=== PATIENT | female | born 1965 | race Caucasian/White ===

== ENCOUNTER 2018-08-08 13:10 | Emergency (ER) | payer OTHER ==
[2018-08-08 13:24] VITALS: BP 119/71; PULSE 83; TEMP 98.2; BMI 30.9
--- NOTE | 2018-08-08 15:15 | PDOC ---
History of Present Illness - General Chief Complaint: Cold Symptoms Stated Complaint: HEADACHE Time Seen by Provider: 08/08/18 14:02 History Source: Patient Exam Limitations: No Limitations Past History - Past Medical History Allergies/Adverse Reactions: Allergies Allergy/AdvReac Type Severity Reaction Status Date / Time aspirin Allergy Verified 08/08/18 13:20 Home Medications: Ambulatory Orders NK [No Known Home Medication] 08/08/18 COPD: No - Immunization History Immunization Up to Date: Yes - Suicide/Smoking/Psychosocial Hx Smoking History: Never smoked Hx Alcohol Use: No Drug/Substance Use Hx: No *Physical Exam - Vital Signs Last Vital Signs Temp Pulse Resp BP Pulse Ox 98.2 F 83 15 119/71 97 08/08/18 13:21 08/08/18 13:21 08/08/18 13:21 08/08/18 13:21 08/08/18 13:21 - Physical Exam General Appearance: No: Apparent Distress HEENT: positive: Normal ENT Inspection, TMs Normal, Pharynx Normal Respiratory/Chest: positive: Lungs Clear, Normal Breath Sounds. negative: Respiratory Distress Cardiovascular: positive: Regular Rhythm, Regular Rate, S1, S2. negative: Murmur Gastrointestinal/Abdominal: positive: Normal Bowel Sounds, Soft. negative: Tender, Distended, Guarding, Rebound Musculoskeletal: positive: Normal Inspection Integumentary: positive: Normal Color Neurologic: positive: Alert, Normal Mood/Affect Moderate Sedation - Procedure Monitoring Vital Signs: Procedure Monitoring Vital Signs Temperature 98.2 F 08/08/18 13:21 Pulse Rate 83 08/08/18 13:21 Respiratory Rate 15 08/08/18 13:21 Blood Pressure 119/71 08/08/18 13:21 O2 Sat by Pulse Oximetry (%) 97 08/08/18 13:21 ED Treatment Course - RADIOLOGY Radiology Studies Ordered: Category Date Time Status CHEST PA & LAT [RAD] Stat Radiology 08/08/18 14:24 Taken Medical Decision Making - Medical Decision Making 53 y/o F hx of asthma presents with headache, sore throat, body aches and dry cough x 2 weeks. Denies recent travel, fever, sob, chest pain, abd pain, n/v. Has not seen her PCP regarding her symptoms. States came in as her family member was being examined and decided to get checked out as well. PE unremarkable CXR done given length of symptoms and unremarkable ?URI Advised further f/u with PCP 08/08/18 15:15 *DC/Admit/Observation/Transfer Diagnosis at time of Disposition: Viral syndrome - Discharge Dispostion Disposition: HOME Condition at time of disposition: Stable Decision to Admit order: No - Referrals - Patient Instructions Printed Discharge Instructions: DI for Viral Upper Respiratory Infection -- Adult Additional Instructions: Thank you for choosing [facility]. It was a pleasure taking care of you. Your chest xray was negative Your symptoms could be viral in origin Follow-up with your doctor for further evaluation Return to the Emergency Department if your symptoms worsen or persist or have other concerning symptoms. - Post Discharge Activity
== END 2018-08-08 15:20 | disposition home or self-care (01) ==
LOC: JERFT 13:10
DX: J06.9 Acute upper respiratory infection, unspecified (principal); B97.89 Other viral agents as the cause of diseases classified elsewhere; Z87.09 Personal history of other diseases of the respiratory system
CPT/HCPCS: 71046-TC-FY; 99281-25

== ENCOUNTER 2018-10-24 09:31 | Emergency (ER) | payer OTHER ==
[2018-10-24 09:41] VITALS: BMI 32.1
--- NOTE | 2018-10-24 10:35 | PDOC ---
History of Present Illness - General Chief Complaint: Vomiting/Diarrhea Stated Complaint: VOMITING W/ DIARRHEA History Source: Patient Exam Limitations: No Limitations - History of Present Illness Initial Comments: 10/24/18 10:33 53 yo F ho DM on metformin, athma, here wit n/v/d since 2 days. has had mutliple episodes of vomiting. loose water stools. denies fever, positive chills. all stool nonbloody . no urinary complaints. also c/o headache. daughter with similar sxs, n/v/d. no travel. no recent abx. also c/o recent worsening wheezing and sob. Past History - Past Medical History Allergies/Adverse Reactions: Allergies Allergy/AdvReac Type Severity Reaction Status Date / Time aspirin Allergy Verified 10/24/18 09:37 Home Medications: Ambulatory Orders Ondansetron [Zofran *Odt*] 8 mg SL TID PRN #10 od.tablet MDD 3 10/24/18 Anemia: Yes COPD: No Diabetes: Yes GI Disorders: Yes Hypercholesterolemia: Yes - Surgical History Appendectomy: Yes - Immunization History Immunization Up to Date: Yes - Suicide/Smoking/Psychosocial Hx Smoking History: Never smoked Hx Alcohol Use: No Drug/Substance Use Hx: No *Physical Exam - Vital Signs Last Vital Signs Temp Pulse Resp BP Pulse Ox 97.9 F 83 18 115/76 97 10/24/18 09:37 10/24/18 09:37 10/24/18 09:37 10/24/18 09:37 10/24/18 09:37 - Physical Exam Comments: 10/24/18 11:58 awake alert dry mucous membranes, heart reg tachycardia. lungs clear bilaterally abd soft nt nd. periumbilical ttp. no rebound no guarding. ext wwp no edema. no calf tendernss ED Treatment Course - LABORATORY CBC & Chemistry Diagram: 10/24/18 11:44 10/24/18 11:44 Medical Decision Making - Medical Decision Making 10/24/18 11:58 53 yo F h/o htn asthma here with n/ v/d and lightheaded. differential infectious viral ge, diverticulitis, dehydration electrolyte abnormality pancreatitis. plan lasbs lipase ivf zofran pepcid. will consider ct if no improvement with fluids and zofran. 10/24/18 15:[address] unremarkable. c/o mild epigastric pain. sick contact. will dc home. fu gi prn, 10/24/18 18:10 feeling better, will dc home fu with GI and pcp. *DC/Admit/Observation/Transfer Diagnosis at time of Disposition: Gastroenteritis - Discharge Dispostion Disposition: HOME Condition at time of disposition: Improved Decision to Admit order: No - Prescriptions Prescriptions: Ondansetron [Zofran *Odt*] 8 mg SL TID PRN #10 od.tablet MDD 3 PRN Reason: Nausea - Referrals Referrals: Molina Aivla DO [Staff Physician] - - Patient Instructions Printed Discharge Instructions: Viral Gastroenteritis Additional Instructions: your labs were unremarkable today. your ct abdomoen and pelvis was negative today. you should eat bland foods, drink plenty of liquids. follow up with gastroenterology as needed. you can take zofran 8 mg every 8 hrs as needed for nausea, or vomiting. return for persistant vomiting, fever pain or any concerns. - Post Discharge Activity Forms/Work/School Notes: Back to Work
[2018-10-24] MEDS ORDERED: FAMOTIDINE 20 MG/50 ML IVPB 20 MG/50 ML MG IVPB ONE ×4 (10:38→16:01)
[2018-10-24] MEDS ORDERED: ONDANSETRON 4 MG/2 ML VIAL IVPUSH ONE (10:38)
[2018-10-24] MEDS ORDERED: SODIUM CHLORIDE 0.9% 1000 ML INFUS.BAG IV ONE (10:38)
[2018-10-24] MEDS ORDERED: ONDANSETRON 4 MG/2 ML VIAL ONE (11:44)
[2018-10-24 12:06] LABS: BASO % 0.2 % (0-2.0); EOS % 0.5 % (0-4.5); HEMATOCRIT 40.4 % (32.4-45.2); HEMOGLOBIN 13.5 GM/dL (10.7-15.3); MCH 27.8 pg (25.7-33.7); MCHC 33.4 g/dl (32.0-36.0); MEAN PLT VOLUME 7.6 fl (7.5-11.1); MONO % 3.7 % (3.8-10.2); NEUT % 90.6 % (42.8-82.8); PLATELET COUNT 269 K/MM3 (134-434); RBC 4.87 M/mm3 (3.60-5.2); RDW 14.8 % (11.6-15.6); WHITE BLOOD COUNT 10.3 K/mm3 (4.0-10.0)
[2018-10-24 12:34] LABS: ALBUMIN 3.7 g/dl (3.4-5.0); ALK PHOS 83 U/L (45-117); ANION GAP 6 MMOL/L (8-16); BILIRUBIN,TOTAL 0.4 mg/dL (0.2-1); BLOOD UREA NITROGEN 15 mg/dL (7-18); CHLORIDE 105 mmol/L (98-107); CO2 28 mmol/L (21-32); CREATININE 0.6 mg/dL (0.55-1.3); GLUCOSE,RANDOM 140 mg/dL (74-106); LIPASE 100 U/L (73-393); POTASSIUM 4.2 mmol/L (3.5-5.1); SGOT/AST 30 U/L (15-37); SGPT/ALT 28 U/L (13-61); SODIUM 139 mmol/L (136-145); TOT PROT 7.2 g/dl (6.4-8.2)
[2018-10-24] MEDS ORDERED: ACETAMINOPHEN 1000 MG/100 ML VIAL (NON FORMULARY) IVPB ONE (12:48)
[2018-10-24] MEDS ORDERED: ACETAMINOPHEN INJECTION 100 ML IVPB ONE (13:06)
--- NOTE | 2018-10-24 15:04 | EKG ---
Test Reason : Blood Pressure : / mmHG Vent. Rate : 074 BPM Atrial Rate : 074 BPM P-R Int : 164 ms QRS Dur : 076 ms QT Int : 390 ms P-R-T Axes : 047 004 021 degrees QTc Int : 432 ms NORMAL SINUS RHYTHM NORMAL ECG NO PREVIOUS ECGS AVAILABLE Confirmed by Austin Lewis ([id number]) on 10/24/2018 3:03:38 PM Referred By: Confirmed By:Austin Lewis
[2018-10-24] MEDS ORDERED: LIDOCAINE VISCOUS 2% ORAL/TOP 20 ML UNIT-DOSE CUP MM ONE (15:55)
[2018-10-24] MEDS ORDERED: MAG HYDROX/AL HYDROX/SIMETH 30 ML UNIT-DOSE CUP PO ONE (15:55)
[2018-10-24] MEDS ORDERED: LIDOCAINE VISCOUS 2% ORAL/TOP 20 ML UNIT-DOSE CUP ONE (16:00)
[2018-10-24] MEDS ORDERED: MAG HYDROX/AL HYDROX/SIMETH 30 ML UNIT-DOSE CUP ONE (16:01)
[2018-10-24 18:00] VITALS: BP 110/65; PULSE 79; TEMP 98.1
== END 2018-10-24 18:35 | disposition home or self-care (01) ==
LOC: JER 09:31
PROC: 3E033GC Introduction of Other Therapeutic Substance into Peripheral Vein, Percutaneous Approach (ICD-10-PCS; principal; 2018-10-24)
PROC: 3E033GC Introduction of Other Therapeutic Substance into Peripheral Vein, Percutaneous Approach (ICD-10-PCS; 2018-10-24)
PROC: 3E033GC Introduction of Other Therapeutic Substance into Peripheral Vein, Percutaneous Approach (ICD-10-PCS; 2018-10-24)
PROC: 3E033NZ Introduction of Analgesics, Hypnotics, Sedatives into Peripheral Vein, Percutaneous Approach (ICD-10-PCS; 2018-10-24)
DX: K52.9 Noninfective gastroenteritis and colitis, unspecified (principal); I11.9 Hypertensive heart disease without heart failure; Z79.84 Long term (current) use of oral hypoglycemic drugs; E78.00 Pure hypercholesterolemia, unspecified; J45.909 Unspecified asthma, uncomplicated
CPT/HCPCS: 36415; 74177-TC; 80053; 83690; 85025; 93005; 93010; 96365; 96366; 96375; 99284-25; J0131; J7030

== ENCOUNTER 2019-06-22 20:45 | Observation (INO) | payer OTHER ==
[2019-06-22 20:57] VITALS: BMI 28.6
--- NOTE | 2019-06-22 21:46 | PDOC ---
History of Present Illness <PuriSabine - Last Filed: 06/23/19 02:00> - General History Source: Patient Exam Limitations: No Limitations - History of Present Illness Initial Comments: 06/23/19 00:09 53 yo F with a hx of HTN, DM, and HLD presents to the emergency department s/p syncopal episode that occurred this night at a laundromat. Per the patient, she was doing laundry when she felt a sudden onset of chills and had a positive LOC. The patient awoke on the floor with a headache. The patient denies the following symptoms prior to the LOC: fever, chills, chest pain, SOB, nausea, vomiting, visual disturbance, and palpitations. Endorses lightheadedness prior to the syncopal event. Last time she had syncope was 6 years ago per the patient. Denies substance abuse. In addition, the patient states she feels pressure in her chest and feels dizzy. Allergies: Aspirin <NanetteTimur - Last Filed: 06/23/19 09:58> - General Chief Complaint: Syncope/Near Syncope Stated Complaint: SYNCOPE Past History <PuriSabine - Last Filed: 06/23/19 02:00> - Past Medical History Anemia: Yes COPD: No Diabetes: Yes GI Disorders: Yes Hypercholesterolemia: Yes - Surgical History Appendectomy: Yes - Immunization History Immunization Up to Date: Yes - Psycho Social/Smoking Cessation Hx Smoking History: Never smoked Hx Alcohol Use: No Drug/Substance Use Hx: No <NanetteTimur - Last Filed: 06/23/19 09:58> - Past Medical History Allergies/Adverse Reactions: Allergies Allergy/AdvReac Type Severity Reaction Status Date / Time aspirin Allergy Verified 06/22/19 20:56 Home Medications: Ambulatory Orders Albuterol Sulfate Inhaler - [Ventolin Hfa Inhaler -] 1 - 2 inh PO QID 06/23/19 Atorvastatin Ca [Lipitor] 20 mg PO HS 06/23/19 Baclofen 10 mg PO DAILY 06/23/19 Review of Systems - Review of Systems Able to Perform ROS?: Yes Is the patient limited Somali proficient: No Constitutional: Yes: Chills, Weakness. No: Diaphoresis, Fever HEENTM: No: Eye Pain, Ear Pain, Nose Pain, Throat Pain, Mouth Pain Respiratory: No: Cough, Shortness of Breath, Hemoptysis Cardiac (ROS): Yes: Lightheadedness, Syncope, Chest Tightness. No: Chest Pain, Palpitations ABD/GI: No: Constipated, Diarrhea, Nausea, Rectal Bleeding, Vomiting, Tarry Stools : No: Burning, Dysuria, Hematuria Musculoskeletal: Yes: Neck Pain. No: Back Pain, Joint Pain Integumentary: No: Bruising, Erythema, Rash Neurological: Yes: Headache. No: Numbness, Tingling, Tremors Psychiatric: No: Change in Appetite Endocrine: No: Unexplained Weight Loss Hematologic/Lymphatic: No: Anemia <Timur Fitzpatrick - Last Filed: 06/23/19 09:58> *Physical Exam - Vital Signs Last Vital Signs Temp Pulse Resp BP Pulse Ox 97 F L 66 16 113/66 99 06/22/19 20:48 06/22/19 20:48 06/22/19 20:48 06/22/19 20:48 06/22/19 20:48 <Sabine Puri - Last Filed: 06/23/19 02:00> - Vital Signs Last Vital Signs Temp Pulse Resp BP Pulse Ox 97 F L 66 16 113/66 99 06/22/19 20:48 06/22/19 20:48 06/22/19 20:48 06/22/19 20:48 06/22/19 20:48 - Physical Exam General Appearance: Yes: Nourished, Appropriately Dressed. No: Apparent Distress, Intoxicated HEENT: positive: EOMI, ELDER, Normal ENT Inspection, Normal Voice, Symmetrical, TMs Normal, Pharynx Normal, Hearing Grossly Normal. negative: Pale Conjunctivae , Scleral Icterus (R), Scleral Icterus (L), Muffled/Hoarse voice, Pharyngeal Erythema, Tonsillar Exudate, Tonsillar Erythema, Nasal Congestion, Rhinorrhea, Sinus Tenderness, Excessive drooling Neck: positive: Trachea midline, Supple. negative: Tender, Lymphadenopathy (R) , Lymphadenopathy (L) Respiratory/Chest: positive: Lungs Clear, Normal Breath Sounds. negative: Chest Tender, Respiratory Distress, Accessory Muscle Use, Crackles, Rales, Rhonchi, Stridor, Wheezing Cardiovascular: positive: Regular Rhythm, Regular Rate, S1, S2. negative: Systolic Murmur Gastrointestinal/Abdominal: positive: Normal Bowel Sounds, Tender (LLQ), Flat, Soft. negative: Distended, Guarding, Rebound Lymphatic: negative: Adenopathy Musculoskeletal: positive: Normal Inspection. negative: CVA Tenderness, Vertebral Tenderness Extremity: positive: Normal Capillary Refill, Normal Inspection, Normal Range of Motion. 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 negative: Facial Droop, Sensory Deficit <Timur Fitzpatrick - Last Filed: 06/23/19 09:58> ED Treatment Course - LABORATORY CBC & Chemistry Diagram: 06/22/19 22:54 06/22/19 22:54 - ADDITIONAL ORDERS Additional order review: Laboratory Results 06/22/19 06/22/19 06/22/19 22:54 22:54 22:54 PT with INR 11.90 INR 1.01 Sodium 139 Potassium 4.1 Chloride 104 Carbon Dioxide 28 Anion Gap 7 L BUN 16.0 Creatinine 0.7 Est GFR (CKD-EPI)AfAm 116.27 Est GFR (CKD-EPI)NonAf 100.32 Random Glucose 103 Calcium 9.4 Total Bilirubin 0.2 AST 18 ALT 29 Alkaline Phosphatase 88 Creatine Kinase Troponin I Total Protein 7.4 Albumin 3.7 Urine Color Yellow Urine Appearance Clear Urine pH 6.5 Ur Specific [place] 1.011 Urine Protein Negative Urine Glucose (UA) Negative Urine Ketones Negative Urine Blood 1+ H Urine Nitrite Negative Urine Bilirubin Negative Urine Urobilinogen 0.2 Ur Leukocyte Esterase 2+ H Urine WBC (Auto) 13 Urine RBC (Auto) 2 Urine Casts (Auto) 3 U Epithel Cells (Auto) 5.4 Urine Bacteria (Auto) 61.3 06/22/19 22:54 PT with INR INR Sodium Potassium Chloride Carbon Dioxide Anion Gap BUN Creatinine Est GFR (CKD-EPI)AfAm Est GFR (CKD-EPI)NonAf Random Glucose Calcium Total Bilirubin AST ALT Alkaline Phosphatase Creatine Kinase 114 Troponin I < 0.02 Total Protein Albumin Urine Color Urine Appearance Urine pH Ur Specific [place] Urine Protein Urine Glucose (UA) Urine Ketones Urine Blood Urine Nitrite Urine Bilirubin Urine Urobilinogen Ur Leukocyte Esterase Urine WBC (Auto) Urine RBC (Auto) Urine Casts (Auto) U Epithel Cells (Auto) Urine Bacteria (Auto) 06/22/19 22:54 RBC 4.91 MCV 84.5 MCHC 32.2 RDW 15.1 MPV 7.7 Neutrophils % 67.0 D Lymphocytes % 24.5 D Monocytes % 7.2 D Eosinophils % 0.7 Basophils % 0.6 - RADIOLOGY Radiology Studies Ordered: Category Date Time Status CERVICAL SPINE CT W/O CONTR [CT] Stat CT Scan 06/22/19 22:[address] WITHOUT CONTRAST [CT] Stat CT Scan 06/22/19 22:15 Taken CHEST X-RAY PORTABLE* [RAD] Stat Radiology 06/23/19 01:37 Taken - Medications Given in the ED: ED Medications Discontinued Medications Generic Name Dose Route Start Last Admin Trade Name Freq PRN Reason Stop Dose Admin Acetaminophen 1,000 mg 06/22/19 22:14 06/22/19 22:56 Ofirmev Injection - IVPB 06/22/19 22:15 1,000 mg ONCE ONE Administration Ceftriaxone Sodium 1 gm/ 100 mls @ 200 mls/hr 06/22/19 23:28 06/23/19 00:22 Dextrose IVPB 06/22/19 23:57 200 mls/hr ONCE ONE Administration Meclizine HCl 50 mg 06/22/19 22:17 06/22/19 22:56 Antivert - PO 06/22/19 22:18 50 mg ONCE ONE Administration <Sabine Puri - Last Filed: 06/23/19 02:00> - LABORATORY CBC & Chemistry Diagram: 06/22/19 22:54 06/22/19 22:54 <Timur Fitzpatrick - Last Filed: 06/23/19 09:58> Medical Decision Making - Medical Decision Making Patient Name: MARITZA LEE THIS IS A PRELIMINARY REPORT FROM [facility] DATE OF SERVICE: 2019-06-22 23:20:18 IMAGES: [id number] EXAM: CERVICAL SPINE CT W/O CONTR HISTORY: Syncope. TECHNIQUE: Helical axial imaging from the skull base through the cervicothoracic junction without administration of contrast. Coronal and sagittal reconstructions were obtained. COMPARISON: None. FINDINGS: The vertebral bodies are normal in height and there is straightening noted of the normal cervical lordosis. No acute fractures or dislocations identified. Mild degenerative changes noted at C5-C6. No obvious disc herniation. Evaluation of prespinal soft tissues limited on CT scan. Prevertebral soft tissues within normal limits. Patent airway. Clear lung apices. IMPRESSION: 1. No acute traumatic osseous abnormality. 2. Straightening of the normal cervical lordosis could be due to spasm or patient positioning 06/23/19 02:00 Patient Name: MARITZA LEE THIS IS A PRELIMINARY REPORT FROM [facility] DATE OF SERVICE: 2019-06-22 23:24:33 IMAGES: [id number] EXAM: HEAD CT WITHOUT CONTRAST HISTORY: Syncope. TECHNIQUE: Helical axial imaging from the skull base through the vertex without administration of contrast. Coronal and sagittal reconstructions were obtained. COMPARISON: None. FINDINGS: The ventricles are normal in size and position without evidence of midline shift. There is no evidence of intracranial mass, hemorrhage, or infarction. No abnormal intra-or extra-axial fluid collections are seen. The snyder-white matter junction differentiation is intact. Empty sella is noted. The osseous calvarium is intact. The mastoids and middle ear cavities are clear. The imaged aspects of the paranasal sinuses are clear. The intraorbital structures are unremarkable. Arthritic changes are seen in the left TMJ. IMPRESSION: No acute traumatic intracranial or osseous abnormality. <Sabine Puri - Last Filed: 06/23/19 02:00> - Medical Decision Making 53 yo F with a hx of HTN, DM, and HLD presents to the emergency department s/p syncopal episode that occurred this night. Initial vitals: Initial Vital Signs Temp Pulse Resp BP Pulse Ox 97 F L 66 16 113/66 99 06/22/19 20:48 06/22/19 20:48 06/22/19 20:48 06/22/19 20:48 06/22/19 20:48 Work up: ddx: patient presents with syncope. cardiogenic vs neurogenic vs anemia vs hypovolemia vs metabolic vs infectious etiology will obtain labs, ua, urine culture, head and cervical spine CT. Laboratory Tests 06/22/19 06/22/19 06/22/19 22:54 22:54 22:54 WBC 9.1 RBC 4.91 Hgb 13.4 Hct 41.5 MCV 84.5 MCH 27.2 MCHC 32.2 RDW 15.1 Plt Count 280 MPV 7.7 Absolute Neuts (auto) 6.1 Neutrophils % 67.0 D Lymphocytes % 24.5 D Monocytes % 7.2 D Eosinophils % 0.7 Basophils % 0.6 Nucleated RBC % 0 PT with INR INR Sodium 139 Potassium 4.1 Chloride 104 Carbon Dioxide 28 Anion Gap 7 L BUN 16.0 Creatinine 0.7 Est GFR (CKD-EPI)AfAm 116.27 Est GFR (CKD-EPI)NonAf 100.32 Random Glucose 103 Calcium 9.4 Total Bilirubin 0.2 AST 18 ALT 29 Alkaline Phosphatase 88 Creatine Kinase 114 Troponin I < 0.02 Total Protein 7.4 Albumin 3.7 Urine Color Urine Appearance Urine pH Ur Specific [place] Urine Protein Urine Glucose (UA) Urine Ketones Urine Blood Urine Nitrite Urine Bilirubin Urine Urobilinogen Ur Leukocyte Esterase Urine WBC (Auto) Urine RBC (Auto) Urine Casts (Auto) U Epithel Cells (Auto) Urine Bacteria (Auto) 06/22/19 06/22/19 22:54 22:54 WBC RBC Hgb Hct MCV MCH MCHC RDW Plt Count MPV Absolute Neuts (auto) Neutrophils % Lymphocytes % Monocytes % Eosinophils % Basophils % Nucleated RBC % PT with INR 11.90 INR 1.01 Sodium Potassium Chloride Carbon Dioxide Anion Gap BUN Creatinine Est GFR (CKD-EPI)AfAm Est GFR (CKD-EPI)NonAf Random Glucose Calcium Total Bilirubin AST ALT Alkaline Phosphatase Creatine Kinase Troponin I Total Protein Albumin Urine Color Yellow Urine Appearance Clear Urine pH 6.5 Ur Specific [place] 1.011 Urine Protein Negative Urine Glucose (UA) Negative Urine Ketones Negative Urine Blood 1+ H Urine Nitrite Negative Urine Bilirubin Negative Urine Urobilinogen 0.2 Ur Leukocyte Esterase 2+ H Urine WBC (Auto) 13 Urine RBC (Auto) 2 Urine Casts (Auto) 3 U Epithel Cells (Auto) 5.4 Urine Bacteria (Auto) 61.3 UA notes UTI Rocephin given Pending head and cervical spine CT. patient was signed out to Dr. Cagle for further work up and management. <Timur Fitzpatrick - Last Filed: 06/23/19 09:58> Discharge <Sabine Puri - Last Filed: 06/23/19 02:00> - Discharge Information Problems reviewed: Yes <Timur Fitzpatrick - Last Filed: 06/23/19 09:58> - Discharge Information Clinical Impression/Diagnosis: Acute electrocardiogram changes Syncope Qualifiers: Syncope type: unspecified Qualified Code(s): R55 - Syncope and collapse Condition: Stable
[2019-06-22] MEDS ORDERED: ACETAMINOPHEN 1000 MG/100 ML VIAL (NON FORMULARY) IVPB ONE (22:14)
[2019-06-22] MEDS ORDERED: MECLIZINE HCL 25 MG TABLET (FP) PO ONE (22:17)
--- NOTE | 2019-06-22 22:18 | PDOC ---
Attending Attestation - Resident Resident Name: NanetteTimur - ED Attending Attestation I have performed the following: I have examined & evaluated the patient, The case was reviewed & discussed with the resident, I agree w/resident's findings & plan - HPI HPI: 06/23/19 01:02 Pt was in the laudromat; felt cold and chills and fell to the ground after feeling dizzy; passed out for unknown amt of time. She has a hx of syncope 1x approx 6 years ago. +LOC Pt has no overt head lacs or trauma. She has no fever and no chills now. She has head pain top of her head and she feels dizzy and she complains of pressure in her chest. - Physicial Exam PE: 06/23/19 01:04 Normal exam No nystagmus Neuro exam normal reflexes equal throughout abd soft NT ND heart and lungs normal. No flank pain - Medical Decision Making 06/22/19 23:27 CBC normal INR normal early UTI 06/22/19 23:51 Pt has hyponatremia and hypomagnesemia and she has elevated Lactic acid 06/23/19 01:15 Pt will be admitted for ACS and syncope; she is high risk as she has HTN, DM and high cholesterol and she is 53 yo. Heart Score/ECG Review - History History: Slightly suspicious - Electrocardiogram EKG: Non specific repolarization disturbance - Age Age: 45-65 - Risk Factors Risk Factors Heart Score: Yes Hx Hypercholesterolemia, Yes Hx Hypertension, Yes Hx Diabetes Based on the list above the patient has:: >/=3 risk factors or Hx atherosclerotic disease - Troponin Troponin: </= normal limit - Score Heart Score - Total: 4 - ECG Intrepretation Rhythm: Regular Rhythm
[2019-06-22] MEDS ORDERED: ACETAMINOPHEN INJECTION 100 ML IVPB ONE (22:36)
[2019-06-22] MEDS ORDERED: MECLIZINE HCL 25 MG TABLET (FP) ONE (23:00)
[2019-06-22 23:11] LABS: BASO % 0.6 % (0-2.0); EOS % 0.7 % (0-4.5); HEMATOCRIT 41.5 % (32.4-45.2); HEMOGLOBIN 13.4 GM/dL (10.7-15.3); LYMPH % 24.5 % (8-40); MCH 27.2 pg (25.7-33.7); MCHC 32.2 g/dl (32.0-36.0); MEAN CELL VOLUME 84.5 fl (80-96); MEAN PLT VOLUME 7.7 fl (7.5-11.1); MONO % 7.2 % (3.8-10.2); PLATELET COUNT 280 K/MM3 (134-434); RBC 4.91 M/mm3 (3.60-5.2); RDW 15.1 % (11.6-15.6); WHITE BLOOD COUNT 9.1 K/mm3 (4.0-10.0)
[2019-06-22 23:13] LABS: EPI CELLS 5.4 /HPF (0-5/HPF); HYALINE CASTS 3 /lpf (0-8); PH,URINE 6.5 (5.0-8.0); URINE APPEARANCE CLEAR; URINE BACTERIA 61.3 /hpf (NEGATIVE); URINE BILIRUBIN NEGATIVE (NEGATIVE); URINE COLOR YELLOW; URINE GLUCOSE (UA) NEGATIVE (NEGATIVE); URINE KETONE NEGATIVE (NEGATIVE); URINE LEUK ESTERASE 2+ (NEGATIVE); URINE NITRITE NEGATIVE (NEGATIVE); URINE PROTEIN NEGATIVE (NEGATIVE); URINE RBC 2 /hpf (0-4); URINE UROBILINOGEN 0.2 mg/dL (0.2-1.0); URINE WBC 13 /hpf (0-5)
[2019-06-22 23:22] LABS: INR 1.01 (0.83-1.09); PROTHROMBIN TIME (PATIENT) 11.9 SEC (9.7-13.0)
[2019-06-22] MEDS ORDERED: CEFTRIAXONE 1 GM in DEXTROSE 5%-WATER - 100 ML IVPB ONE (23:28)
[2019-06-22 23:39] LABS: ALBUMIN 3.7 g/dl (3.4-5.0); BILIRUBIN,TOTAL 0.2 mg/dL (0.2-1); CALCIUM 9.4 mg/dL (8.5-10.1); CREATININE 0.7 mg/dL (0.55-1.3); POTASSIUM 4.1 mmol/L (3.5-5.1); TOT PROT 7.4 g/dl (6.4-8.2)
[2019-06-23] MEDS ORDERED: cefTRIAXone SODIUM 1 GM VIAL ONE (00:07)
--- NOTE | 2019-06-23 00:22 | PDOC ---
*Physical Exam - Vital Signs Last Vital Signs Temp Pulse Resp BP Pulse Ox 97 F L 66 16 113/66 99 06/22/19 20:48 06/22/19 20:48 06/22/19 20:48 06/22/19 20:48 06/22/19 20:48 ED Treatment Course - LABORATORY CBC & Chemistry Diagram: 06/22/19 22:54 06/22/19 22:54 - ADDITIONAL ORDERS Additional order review: Laboratory Results 06/22/19 06/22/19 06/22/19 22:54 22:54 22:54 PT with INR 11.90 INR 1.01 Sodium 139 Potassium 4.1 Chloride 104 Carbon Dioxide 28 Anion Gap 7 L BUN 16.0 Creatinine 0.7 Est GFR (CKD-EPI)AfAm 116.27 Est GFR (CKD-EPI)NonAf 100.32 Random Glucose 103 Calcium 9.4 Total Bilirubin 0.2 AST 18 ALT 29 Alkaline Phosphatase 88 Creatine Kinase Troponin I Total Protein 7.4 Albumin 3.7 Urine Color Yellow Urine Appearance Clear Urine pH 6.5 Ur Specific [place] 1.011 Urine Protein Negative Urine Glucose (UA) Negative Urine Ketones Negative Urine Blood 1+ H Urine Nitrite Negative Urine Bilirubin Negative Urine Urobilinogen 0.2 Ur Leukocyte Esterase 2+ H Urine WBC (Auto) 13 Urine RBC (Auto) 2 Urine Casts (Auto) 3 U Epithel Cells (Auto) 5.4 Urine Bacteria (Auto) 61.3 06/22/19 22:54 PT with INR INR Sodium Potassium Chloride Carbon Dioxide Anion Gap BUN Creatinine Est GFR (CKD-EPI)AfAm Est GFR (CKD-EPI)NonAf Random Glucose Calcium Total Bilirubin AST ALT Alkaline Phosphatase Creatine Kinase 114 Troponin I < 0.02 Total Protein Albumin Urine Color Urine Appearance Urine pH Ur Specific [place] Urine Protein Urine Glucose (UA) Urine Ketones Urine Blood Urine Nitrite Urine Bilirubin Urine Urobilinogen Ur Leukocyte Esterase Urine WBC (Auto) Urine RBC (Auto) Urine Casts (Auto) U Epithel Cells (Auto) Urine Bacteria (Auto) 06/22/19 22:54 RBC 4.91 MCV 84.5 MCHC 32.2 RDW 15.1 MPV 7.7 Neutrophils % 67.0 D Lymphocytes % 24.5 D Monocytes % 7.2 D Eosinophils % 0.7 Basophils % 0.6 - Medications Given in the ED: ED Medications Discontinued Medications Generic Name Dose Route Start Last Admin Trade Name Freq PRN Reason Stop Dose Admin Acetaminophen 1,000 mg 06/22/19 22:14 06/22/19 22:56 Ofirmev Injection - IVPB 06/22/19 22:15 1,000 mg ONCE ONE Administration Meclizine HCl 50 mg 06/22/19 22:17 06/22/19 22:56 Antivert - PO 06/22/19 22:18 50 mg ONCE ONE Administration Medical Decision Making - Medical Decision Making Pt was signed out to me by resident Dr. Fitzpatrick, who explained the presentation, ED course, any pending results, and needed interventions. Pending results include reads of CT head and C-spine. Pt is currently stable and is lying comfortably. Pt admitted for tele observation for syncopal episodes and new EKG changes. 06/23/19 00:46 Discharge - Discharge Information Problems reviewed: Yes Clinical Impression/Diagnosis: Acute electrocardiogram changes Syncope Qualifiers: Syncope type: unspecified Qualified Code(s): R55 - Syncope and collapse Condition: Stable - Admission Yes - Follow up/Referral - Patient Discharge Instructions - Post Discharge Activity
--- NOTE | 2019-06-23 00:51 | PN ---
Teaching Attending Note Name of Resident: Joan Ureña ATTENDING PHYSICIAN STATEMENT I saw and evaluated the patient. I reviewed the resident's note and discussed the case with the resident. I agree with the resident's findings and plan as documented. SUBJECTIVE: 53 yo F with a hx of HTN, DM, and HLD Status post syncope episode that occurred on 06/22/2019 at around 7 PM in the evening when she was doing laundry and felt cold sensation of her body. She reports losing consciousness for a few seconds and bystanders called EMS which brought her to the hospital. Denied any headache, dizziness, palpitations or chest pain preceding the event. She denies any prior history of seizure disorder.Denied any significant trauma to her head. Denied any bladder or bowel incontinence or tongue biting. OBJECTIVE: Last Vital Signs Temp Pulse Resp BP Pulse Ox 97 F L 66 16 113/66 99 06/22/19 20:48 06/22/19 20:48 06/22/19 20:48 06/22/19 20:48 06/22/19 20:48 GENERAL: Well developed, well nourished. Awake and alert. No acute distress. HEENT: Normocephalic, atraumatic. PERRLA, EOMI. No conjunctival pallor. Sclera are non- icteric. Moist mucous membranes. NECK: Supple. Full ROM. No JVD. Carotid pulses 2+ and symmetric, without bruits. No thyromegaly. No lymphadenopathy. CARDIOVASCULAR: Regular rate and rhythm. No murmurs, rubs, or gallops. Distal pulses are 2+ and symmetric. PULMONARY: No evidence of respiratory distress. Lungs clear to auscultation bilaterally. No wheezing, rales or rhonchi. ABDOMINAL: Soft. Non-tender. Non-distended. No rebound or guarding. No organomegaly. Normoactive bowel sounds. MUSCULOSKELETAL Normal range of motion at all joints. No bony deformities or tenderness. No CVA tenderness. EXTREMITIES: No cyanosis. No clubbing. No edema. No calf tenderness. SKIN: Warm and dry. Normal capillary refill. No rashes. No jaundice. PSYCHIATRIC: Cooperative. Good eye contact. Appropriate mood and affect. Abnormal Lab Results 06/22/19 06/22/19 22:54 22:54 Anion Gap 7 L Urine Blood 1+ H Ur Leukocyte Esterase 2+ H EKG reviewednormal sinus rhythm normal rate Head CT and C-spine were reviewed and negative for any acute fractures ASSESSMENT AND PLAN: 53-year-old woman with syncope episode. Suspect possible vasovagal versus orthostatic versus cardiogenic. Telemetry observation Check orthostatics TSH Gentle IV fluid hydration Refer to cardiology as an outpatient for echo and Holter monitoring SCDs for DVT prophylaxis
--- NOTE | 2019-06-23 01:31 | HP ---
CHIEF COMPLAINT: syncope PCP: Dr. Hart HISTORY OF PRESENT ILLNESS: 53F w/ pmhx of DM, HTN, HLD, asthma presents in the ED for complaints of a syncopal episode. States that while she was doing laundry, she glanced up to watch tv when she suddenly felt generalized chills starting from the b/l LE radiating to the entire rest of her body and then syncopized and lost consciousness. Does not know if she hit her head or not, and fall was unwitnessed. States she had associated dizziness, blurry vision, chest pressure , dry mouth preceding the syncopal episode. Pt endorses waking up and being unable to move and get up herself. She was surrounded by other customers of the [employer] who tried to wake her up. Pt was subsequently brought to the ED by EMS. Of note, she admits to these same episodes happening to her twice in the past year. Additionally, admits to burning while urination, but no fever/chills, hematuria. ER course was notable for: (1) VS wnl, trops neg x1, CBC/CMP wnl, UA positive (2) Head CT, CT C-spine neg (3) IV Rocephin, Meclizine, IV Tylenol given Recent Travel: Denies PAST MEDICAL HISTORY: DM HTN HLD asthma PAST SURGICAL HISTORY: C-s x1 appendectomy scoliosis surgery breast reduction surgery Family History: Mother- Breast cx, diagnosed at 65, stroke, DM Maternal grandmother- stroke Father- gastric cancer, at age 64 HTN in family Social History: Smoking: Denies Alcohol: Denies Drugs: Denies Occupation: Works at [employer] Lives at home with and is at baseline ambulatory with no use of assistive devices Allergies aspirin Allergy (Verified 06/22/19 20:56) HOME MEDICATIONS: Home Medications Medication Instructions Recorded NK [No Known Home Medication] 06/22/19 REVIEW OF SYSTEMS CONSTITUTIONAL: Absent: fever, chills, diaphoresis, generalized weakness, malaise, loss of appetite, weight change HEENT: posterior neck pain Absent: rhinorrhea, nasal congestion, throat pain, throat swelling, difficulty swallowing, mouth swelling, ear pain, eye pain, visual changes CARDIOVASCULAR: Absent: chest pain, syncope, palpitations, irregular heart rate, lightheadedness , peripheral edema RESPIRATORY: Absent: cough, shortness of breath, dyspnea with exertion, orthopnea, wheezing, stridor, hemoptysis GASTROINTESTINAL: Absent: abdominal pain, abdominal distension, nausea, vomiting, diarrhea, constipation, melena, hematochezia GENITOURINARY: Absent: dysuria, frequency, urgency, hesitancy, hematuria, flank pain, genital pain MUSCULOSKELETAL: Absent: myalgia, arthralgia, joint swelling, back pain, neck pain SKIN: Absent: rash, itching, pallor HEMATOLOGIC/IMMUNOLOGIC: Absent: easy bleeding, easy bruising, lymphadenopathy, frequent infections ENDOCRINE: Absent: unexplained weight gain, unexplained weight loss, heat intolerance, cold intolerance NEUROLOGIC: Absent: headache, focal weakness or paresthesias, dizziness, unsteady gait, seizure, mental status changes, bladder or bowel incontinence PSYCHIATRIC: Absent: anxiety, depression, suicidal or homicidal ideation, hallucinations. PHYSICAL EXAMINATION Vital Signs - 24 hr 06/22/19 20:48 Temperature 97 F L Pulse Rate 66 Respiratory 16 Rate Blood Pressure 113/66 O2 Sat by Pulse 99 Oximetry (%) GENERAL: Pleasant, well-appearing female. AAOx3. NAD. Answers questions appropriately. HEENT: AT/NC. EOMI. MMM. No tongue deviation. No pharyngeal erythema. NECK: Full ROM. No LAD,JVD. Point tenderness in posterior neck. LUNGS: CTA B/L. No wheezes/crackles noted. Symmetric chest rise. HEART: RRR. Normal S1, S2. No murmurs noted. ABDOMEN: Soft, NT/ND. Normoactive bowel sounds in all 4Qs. No rebound tenderness /guarding. MUSCULOSKELETAL: Normal range of motion at all joints. No bony deformities or tenderness. No CVA tenderness. UPPER EXTREMITIES: 2+ radial pulses. Limited active ROM in RUE due to chronic shoulder pain. LOWER EXTREMITIES: 2+ dorsalis pedis pulses, warm, well-perfused. No calf tenderness. No peripheral edema. NEUROLOGICAL: Cranial nerves II-XII intact. Normal speech. Sensation intact throughout. PSYCHIATRIC: Cooperative. Good eye contact. Appropriate mood and affect. SKIN: Warm, dry, normal turgor, no rashes or lesions noted, normal capillary refill. Laboratory Results - last 24 hr 06/22/19 06/22/19 06/22/19 22:54 22:54 22:54 WBC 9.1 RBC 4.91 Hgb 13.4 Hct 41.5 MCV 84.5 MCH 27.2 MCHC 32.2 RDW 15.1 Plt Count 280 MPV 7.7 Absolute Neuts (auto) 6.1 Neutrophils % 67.0 D Lymphocytes % 24.5 D Monocytes % 7.2 D Eosinophils % 0.7 Basophils % 0.6 Nucleated RBC % 0 PT with INR INR Sodium 139 Potassium 4.1 Chloride 104 Carbon Dioxide 28 Anion Gap 7 L BUN 16.0 Creatinine 0.7 Est GFR (CKD-EPI)AfAm 116.27 Est GFR (CKD-EPI)NonAf 100.32 Random Glucose 103 Calcium 9.4 Total Bilirubin 0.2 AST 18 ALT 29 Alkaline Phosphatase 88 Creatine Kinase 114 Troponin I < 0.02 Total Protein 7.4 Albumin 3.7 Urine Color Urine Appearance Urine pH Ur Specific [place] Urine Protein Urine Glucose (UA) Urine Ketones Urine Blood Urine Nitrite Urine Bilirubin Urine Urobilinogen Ur Leukocyte Esterase Urine WBC (Auto) Urine RBC (Auto) Urine Casts (Auto) U Epithel Cells (Auto) Urine Bacteria (Auto) 06/22/19 06/22/19 22:54 22:54 WBC RBC Hgb Hct MCV MCH MCHC RDW Plt Count MPV Absolute Neuts (auto) Neutrophils % Lymphocytes % Monocytes % Eosinophils % Basophils % Nucleated RBC % PT with INR 11.90 INR 1.01 Sodium Potassium Chloride Carbon Dioxide Anion Gap BUN Creatinine Est GFR (CKD-EPI)AfAm Est GFR (CKD-EPI)NonAf Random Glucose Calcium Total Bilirubin AST ALT Alkaline Phosphatase Creatine Kinase Troponin I Total Protein Albumin Urine Color Yellow Urine Appearance Clear Urine pH 6.5 Ur Specific [place] 1.011 Urine Protein Negative Urine Glucose (UA) Negative Urine Ketones Negative Urine Blood 1+ H Urine Nitrite Negative Urine Bilirubin Negative Urine Urobilinogen 0.2 Ur Leukocyte Esterase 2+ H Urine WBC (Auto) 13 Urine RBC (Auto) 2 Urine Casts (Auto) 3 U Epithel Cells (Auto) 5.4 Urine Bacteria (Auto) 61.3 ASSESSMENT/PLAN: 53F w/ pmhx of DM, HTN, HLD, asthma presents in the ED for complaints of a syncopal episode. #Syncope; r/o cardiac etiology. Pt currently stable. -Pt has had multiple recurrent episodes of syncope with same prodromal symptoms. Orthostatics neg: supine 128/60, sitting 118/70, standing 116/75. -Head CT and CT C-spine neg (per prelim read); await final report -Will need outpatient cardiac work up with Holter monitor to r/o cardiac dysrhythmias; echo as outpatient -Fall precautions #UTI; Pt currently complaining of burning while urination. -IV Ceftriaxone given x1 -Will cont with Keflex 500 BID PO -UA+; UCx pending #Chest Pressure; likely prodromal symptom related to syncopal episode, r/o ACS but unlikely -Pt currently has no active chest symptoms, only associates chest pressure during onset of syncopal episode. States it is non-exertional. -Trops ordered, will trend -EKG showed NSR, HR 64, QTc 410 ms, no ST-T changes #Hx of R shoulder pain; Stable. Evaluated as an outpatient. Cont home med: Baclofen 10 #Asthma; Stable. Pt states she is on albuterol inhaler along with 2 other inhalers at home, however she does not know the name. Will need med rec in AM. -Cont Albuterol nebs PRN for now #NIDDM; Stable. Per outpatient records last A1c on 05/21/19 was 6.0%. Pt only on Metformin as outpatient, but admits to non-compliance with meds. -will hold Metformin and start BGM/ISS ACHS #HLD; cont home med: Lipitor 20 #Prophylaxis DVT: Lovenox #FEN -NS @ 100 -recheck lytes in AM -diabetic/sodium-controlled diet Dispo -admit to tele obs -d/c planning, may potentially follow up as an outpatient for cardiac workup Visit type - Emergency Visit Emergency Visit: Yes ED Registration Date: 06/23/19 Care time: The patient presented to the Emergency Department on the above date and was hospitalized for further evaluation of their emergent condition. - New Patient This patient is new to me today: Yes Date on this admission: 06/23/19 - Critical Care Critical Care patient: No ATTENDING PHYSICIAN STATEMENT I saw and evaluated the patient. I reviewed the resident's note and discussed the case with the resident. I agree with the resident's findings and plan as documented. SUBJECTIVE: OBJECTIVE: ASSESSMENT AND PLAN:
[2019-06-23] MEDS ORDERED: SODIUM CHLORIDE 1,000 ML IV SCH (02:15)
[2019-06-23] MEDS ORDERED: INSULIN SLIDING SCALE (NOVOLOG) 1 VIAL SQ SCH (07:00)
[2019-06-23] MEDS: INSULIN SLIDING SCALE (NOVOLOG) 1 VIAL SQ SCH ×2 (07:31→11:40)
[2019-06-23] MEDS ORDERED: ALBUTEROL SO4 0.083% IH SOL 2.5 MG/3 ML VIAL.NEB. NEB ONE (07:52)
[2019-06-23] MEDS ORDERED: ALBUTEROL SO4 0.083% IH SOL 2.5 MG/3 ML VIAL.NEB. NEB SCH (08:00)
[2019-06-23] MEDS ORDERED: BACLOFEN 10 MG TABLET (FP) ONE (09:44)
[2019-06-23] MEDS ORDERED: CEPHALEXIN MONOHYDRATE 500 MG CAPSULE (UD) ONE (09:44)
[2019-06-23] MEDS ORDERED: BACLOFEN 10 MG TABLET (FP) PO SCH (10:00)
[2019-06-23] MEDS ORDERED: CEPHALEXIN MONOHYDRATE 500 MG CAPSULE (UD) PO SCH (10:00)
[2019-06-23] MEDS ORDERED: ENOXAPARIN NA (PORCINE) 40 MG/0.4 ML DISP.SYRIN SQ SCH (10:00)
--- NOTE | 2019-06-23 10:19 | EKG ---
Test Reason : Blood Pressure : / mmHG Vent. Rate : 064 BPM Atrial Rate : 064 BPM P-R Int : 174 ms QRS Dur : 076 ms QT Int : 398 ms P-R-T Axes : 057 -03 010 degrees QTc Int : 410 ms NORMAL SINUS RHYTHM POSSIBLE LEFT ATRIAL ENLARGEMENT LEFT VENTRICULAR HYPERTROPHY ABNORMAL ECG WHEN COMPARED WITH ECG OF 24-OCT-2018 13:10, NO SIGNIFICANT CHANGE WAS FOUND Confirmed by TED LIMON, WATSON ([id number]) on 06/23/2019 10:19:18 AM Referred By: Confirmed By:WATSON JEAN MD
[2019-06-23 12:08] VITALS: BP 110/65; PULSE 65; TEMP 97.4
--- NOTE | 2019-06-23 12:22 | DS ---
Physical Exam: SUBJECTIVE: Feels well - denies any CP/palpitations/dyspnea/lightheadedness. No headache, limb numbness/weakness/tingling. OBJECTIVE: Afebrile, Hemodynamically stable. Last Vital Signs Temp Pulse Resp BP Pulse Ox 97.4 F L 65 16 110/65 96 06/23/19 12:04 06/23/19 12:04 06/23/19 12:04 06/23/19 12:04 06/23/19 12:04 PHYSICAL EXAM General - AAO x 3. Comfortable Heart - S1, S2, RRR Lungs - clear to auscultation Abdomen - Soft, non-tender. Bowel Sounds normal. Extremities- no edema, no calf tenderness. LABS Laboratory Results - last 24 hr 06/22/19 06/22/19 06/22/19 22:54 22:54 22:54 WBC 9.1 RBC 4.91 Hgb 13.4 Hct 41.5 MCV 84.5 MCH 27.2 MCHC 32.2 RDW 15.1 Plt Count 280 MPV 7.7 Absolute Neuts (auto) 6.1 Neutrophils % 67.0 D Lymphocytes % 24.5 D Monocytes % 7.2 D Eosinophils % 0.7 Basophils % 0.6 Nucleated RBC % 0 PT with INR INR Sodium 139 Potassium 4.1 Chloride 104 Carbon Dioxide 28 Anion Gap 7 L BUN 16.0 Creatinine 0.7 Est GFR (CKD-EPI)AfAm 116.27 Est GFR (CKD-EPI)NonAf 100.32 POC Glucometer Random Glucose 103 Calcium 9.4 Total Bilirubin 0.2 AST 18 ALT 29 Alkaline Phosphatase 88 Creatine Kinase 114 Troponin I < 0.02 Total Protein 7.4 Albumin 3.7 Urine Color Urine Appearance Urine pH Ur Specific [place] Urine Protein Urine Glucose (UA) Urine Ketones Urine Blood Urine Nitrite Urine Bilirubin Urine Urobilinogen Ur Leukocyte Esterase Urine WBC (Auto) Urine RBC (Auto) Urine Casts (Auto) U Epithel Cells (Auto) Urine Bacteria (Auto) 06/22/19 06/22/19 06/23/19 22:54 22:54 06:45 WBC RBC Hgb Hct MCV MCH MCHC RDW Plt Count MPV Absolute Neuts (auto) Neutrophils % Lymphocytes % Monocytes % Eosinophils % Basophils % Nucleated RBC % PT with INR 11.90 INR 1.01 Sodium Potassium Chloride Carbon Dioxide Anion Gap BUN Creatinine Est GFR (CKD-EPI)AfAm Est GFR (CKD-EPI)NonAf POC Glucometer 85 Random Glucose Calcium Total Bilirubin AST ALT Alkaline Phosphatase Creatine Kinase Troponin I Total Protein Albumin Urine Color Yellow Urine Appearance Clear Urine pH 6.5 Ur Specific [place] 1.011 Urine Protein Negative Urine Glucose (UA) Negative Urine Ketones Negative Urine Blood 1+ H Urine Nitrite Negative Urine Bilirubin Negative Urine Urobilinogen 0.2 Ur Leukocyte Esterase 2+ H Urine WBC (Auto) 13 Urine RBC (Auto) 2 Urine Casts (Auto) 3 U Epithel Cells (Auto) 5.4 Urine Bacteria (Auto) 61.3 06/23/19 11:23 WBC RBC Hgb Hct MCV MCH MCHC RDW Plt Count MPV Absolute Neuts (auto) Neutrophils % Lymphocytes % Monocytes % Eosinophils % Basophils % Nucleated RBC % PT with INR INR Sodium Potassium Chloride Carbon Dioxide Anion Gap BUN Creatinine Est GFR (CKD-EPI)AfAm Est GFR (CKD-EPI)NonAf POC Glucometer 92 Random Glucose Calcium Total Bilirubin AST ALT Alkaline Phosphatase Creatine Kinase Troponin I Total Protein Albumin Urine Color Urine Appearance Urine pH Ur Specific [place] Urine Protein Urine Glucose (UA) Urine Ketones Urine Blood Urine Nitrite Urine Bilirubin Urine Urobilinogen Ur Leukocyte Esterase Urine WBC (Auto) Urine RBC (Auto) Urine Casts (Auto) U Epithel Cells (Auto) Urine Bacteria (Auto) Discharge Medications Medication Instructions Recorded Albuterol Sulfate Inhaler - 1 - 2 inh PO QID 06/23/19 [Ventolin Hfa Inhaler -] Atorvastatin Ca [Lipitor] 20 mg PO HS 06/23/19 Baclofen 10 mg PO DAILY 06/23/19 Cefpodoxime Proxetil [Vantin -] 200 mg PO Q12H #6 tablet 06/23/19 Date of Admission:06/23/19 Date of Discharge: 06/23/19 Minutes to complete discharge: 45 Discharge Summary Problems reviewed: Yes Reason For Visit: SYNCOPE AND COLLAPSE Current Active Problems Acute electrocardiogram changes (Acute) Syncope (Acute) Hospital Course: 53 year old female with history of HTN, DM 2, and HLD, admitted s/p syncope, with bystanders calling EMS due to LOC. Patient unsure about HI. Denies preceeding CP/palpitations/lightheadedness but does endorse a feeling of coldness/chills that came over her prior to the event. No headache/visual disturbance/focal limb numbness, weakness, tingling. No seizure history. No bladder/bowel incontinence or tongue biting. Ortostatic vitals were negative, CXR - no acute findings CT Head and C-Spine reported preliminarily as negative, awaiting official report. ECG- SR, LVH, RA enlargement She was admitted for syncope work up including Telemonitoring, Echo, EEG, Cardio and Neuro eval. However after being explained all risks including further episodes of collapse, head injury, arrest, disability, , she decided to accept responsibility for the consequences and signed the A paperwork. She was given out-patient referrals to [facility] and [facility], as well as a short course of Abx for possible UTI. Urine Cx pending at time she left [facility]. Condition: Guarded - Instructions Diet, Activity, Other Instructions: You were admitted for an episode of loss of consciousness and you were recommended to stay hospitalized for further work-up including Telemetry monitoring, Echo, Cardiology and Neurology evaluations as well as for further treatment for possible UTI. After being explained all the risks of doing so, the worst of which would be disability or , you chose to leave against medical advice. You were of sound mind when explained all risks and accepted responsibility for your actions. Please seek medical attention [facility]. Referrals: jM Mclaughlin MD [Staff Physician] - Dylan Sebastian DO [Staff Physician] - Disposition: AGAINST MEDICAL ADVICE - Home Medications Comprehensive Discharge Medication List: Ambulatory Orders Albuterol Sulfate Inhaler - [Ventolin Hfa Inhaler -] 1 - 2 inh PO QID 06/23/19 Atorvastatin Ca [Lipitor] 20 mg PO HS 06/23/19 Baclofen 10 mg PO DAILY 06/23/19 Cefpodoxime Proxetil [Vantin -] 200 mg PO Q12H #6 tablet 06/23/19 This patient is new to me today: Yes Date on this admission: 06/23/19 Emergency Visit: Yes ED Registration Date: 06/23/19 Care time: The patient presented to the Emergency Department on the above date and was hospitalized for further evaluation of their emergent condition. Critical Care patient: No - Discharge Referral Referred to [facility] Med P.C.: No
[2019-06-23] MEDS ORDERED: ATORVASTATIN CA 20 MG TABLET (FP) PO SCH (22:00)
== END 2019-06-23 12:09 | disposition left against medical advice (07) ==
LOC: JER 20:45 → JERBED 06-23 00:14
PROVIDERS: ADMIT Internal Medicine
PROC: 3E033NZ Introduction of Analgesics, Hypnotics, Sedatives into Peripheral Vein, Percutaneous Approach (ICD-10-PCS; principal; 2019-06-23)
PROC: 3E03329 Introduction of Other Anti-infective into Peripheral Vein, Percutaneous Approach (ICD-10-PCS; 2019-06-23)
PROC: 3E013GC Introduction of Other Therapeutic Substance into Subcutaneous Tissue, Percutaneous Approach (ICD-10-PCS; 2019-06-23)
PROC: 3E0F7GC Introduction of Other Therapeutic Substance into Respiratory Tract, Via Natural or Artificial Opening (ICD-10-PCS; 2019-06-23)
DX: R55 Syncope and collapse (principal); R94.31 Abnormal electrocardiogram [ECG] [EKG]; N39.0 Urinary tract infection, site not specified; I10 Essential (primary) hypertension; E78.5 Hyperlipidemia, unspecified; E11.9 Type 2 diabetes mellitus without complications; R07.89 Other chest pain; J45.909 Unspecified asthma, uncomplicated
CPT/HCPCS: 36415; 70450-TC; 71045-TC-FY; 72125-TC; 80053; 81003; 82550; 82962; 84484; 85025; 85610; 87086; 93005; 93010; 94640; 96365; 96372; 96375; 99284-25; G0378; J0131; J0475; J7030

== ENCOUNTER 2020-03-15 18:29 | Emergency (ER) | payer OTHER ==
[2020-03-15 18:40] VITALS: TEMP 98.6; BMI 25.7
--- NOTE | 2020-03-15 19:44 | PDOC ---
History of Present Illness - General Chief Complaint: Headache Stated Complaint: HEADACHE Time Seen by Provider: 03/15/20 19:43 - History of Present Illness Initial Comments: HPI Pt is a 54yo F with PMH HTN, HLD, DM who presents with headache x3 days. Reports KAYE is gradual onset, intermittent, frontal/apical headache, described as pounding. Currently 7/10. Reports episode of dizziness and blurry vision yesterday morning, lasting about 30 minutes, which self- resolved and has not recurred. States that she has been taking 1000mg BID of tylenol with improvement in symptoms. Reports that she has not taken any of her medications over the past 8 months due to being unable to see a doctor due to pandemic. States that she feels like her blood sugar is high (170s-180s). Reports chest pain (pressure, non radiating), a/w SOB and tachycardia that is triggered by emotional stress. Denies f/c, facial pain, n/v, abdominal pain,diarrhea/constipation. PCP: Hailey PMH: see above PSH: csection, breast reduction, appendectomy Meds: metformin, omeprazole, statin (has not taken in 8 months) Allergies: aspirin (hives) Social: denies TRAVON Review of Systems CONSTITUTIONAL:denies fever, chills, generalized weakness, malaise, loss of appetite HEENT:see HPI; denies rhinorrhea, nasal congestion, sore throat, eye pain CARDIOVASCULAR:reports chest pain, palpitations, denies irregular heart rate, lightheadedness, peripheral edema RESPIRATORY:reports SOB; denies cough, dyspnea with exertion, orthopnea, wheezing, hemoptysis GASTROINTESTINAL: denies abdominal pain, nausea, vomiting, diarrhea, constipation, melena, hematochezia GENITOURINARY:denies dysuria, frequency, urgency, hematuria, flank pain MUSCULOSKELETAL:denies myalgia, arthralgia HEMATOLOGIC/IMMUNOLOGIC:denies easy bleeding, easy bruising ENDOCRINE: denies unexplained weight gain, unexplained weight loss NEUROLOGIC:reports headache, dizziness; denies loss of consciousness, focal weakness or paresthesias, unsteady gait, mental status changes, bladder or bowel incontinence SKIN:denies rash, itching, pallor Physical Exam General: awake, alert, fully oriented, in no acute distress, well developed, well nourished Head: normocephalic, atraumatic Eyes: PERRL, EOMI, anicteric sclera, conjunctiva clear ENT: Auricles normal inspection, hearing grossly normal, oropharynx clear without exudates, moist mucous membranes Neck: supple, normal ROM Lung: equal breath sounds b/l, CTA b/l, no crackles, wheezes Heart: RRR, normal S1, S2, no murmurs appreciated Abdomen: soft, non tender, normoactive bowel sounds, no guarding, rebound, masses Extremities: normal ROM, no edema, no erythema or tenderness, radial/DP/PT pulses 2+ and symmetric Neuro: Cranial nerves: Cranial nerves II through XII are intact Motor: The upper extremities are 5/5 in all muscle groups. The lower extremities are 5/5 in all muscle groups. No pronator drift. Sensation: Sensation is intact to light touch throughout. Cerebellar: -dysmetria, -dysdiadochokinesia, [id number] is normal in both lower extremities. Gait: Normal Skin: warm, dry, no rashes or lesions noted MDM Pt is a 54yo F with PMH HTN, HLD, DM who presents with headache x3 days. DDx including but not limited to: tension headache, ACS Workup: labs, head CT [place]: reglan, ofirmev, IV fluids Labs: no leukocytosis, no anemia, electrolytes WNL, trop WNL 03/15/20 23:[address]: No acute intracranial hemorrhage mass effect or midline shift. The pituitary gland is not seen within the sella suspicious for empty sella syndrome may be associated with symptoms of headache. Re-assessment: Patient stable for discharge. Pain controlled. Informed of all lab and imaging results. Given follow up instructions and strict return precautions. Patient expressed understanding and agree to plan Disposition Discharge Past History - Medical History Allergies/Adverse Reactions: Allergies Allergy/AdvReac Type Severity Reaction Status Date / Time aspirin Allergy Verified 03/15/20 18:38 Home Medications: Ambulatory Orders Albuterol Sulfate Inhaler - [Ventolin Hfa Inhaler -] 1 - 2 inh PO QID 06/23/19 Atorvastatin Ca [Lipitor] 20 mg PO HS 06/23/19 Baclofen 10 mg PO DAILY 06/23/19 Cefpodoxime Proxetil [Vantin -] 200 mg PO Q12H #6 tablet 06/23/19 Anemia: Yes COPD: No Diabetes: Yes GI Disorders: Yes HTN: Yes Hypercholesterolemia: Yes - Surgical History Appendectomy: Yes - Reproductive History Is Patient Now?: No - Immunization History Immunization Up to Date: Yes - Psycho-Social/Smoking History Smoking History: Never smoked - Substance Abuse Hx (Audit-C & DAST Scrn) How often the patient has a drink containing alcohol: Never Score: In Men: 4 or > Positive; In Women: 3 or > Positive: 0 Screen Result (Pos requires Nsg. Audit-10AR): Negative In the last yr the pt used illegal drug/Rx for NonMed reason: No Score: Yes response is considered Positive: 0 Screen Result (Positive result requires Nsg. DAST-10): Negative *Physical Exam - Vital Signs Last Vital Signs Temp Pulse Resp BP Pulse Ox 98.6 F 75 18 128/69 99 03/15/20 18:38 03/15/20 18:38 03/15/20 18:38 03/15/20 18:38 03/15/20 18:38 ED Treatment Course - LABORATORY CBC & Chemistry Diagram: 03/15/20 21:00 03/15/20 21:00 Discharge - Discharge Information Problems reviewed: Yes Clinical Impression/Diagnosis: Tension headache Condition: Stable Disposition: HOME - Follow up/Referral Referrals: Joe Hart MD [Primary Care Provider] - Isacc Polanco MD [Staff Physician] - - Patient Discharge Instructions Patient Printed Discharge Instructions: DI for Headache Additional Instructions: You came into the ER for headache. In the ED, you were evaluated with blood work and head CT. Your blood work was normal. 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 You do not appear to be an acute need for immediate hospitalization. In most cases in individuals with empty sella syndrome, there are no associated symptoms (asymptomatic). The most common symptom potentially associated with empty sella syndrome is chronic headaches. You were advised to follow up with your primary care doctor. Go to your appointment as scheduled. You were given a referral to Dr. Polanco, neurologist. Call on Tuesday and schedule an appointment. Come back to the ER immediately with any new or worsening concerns, such as severe headache, persistent vomiting, pain with breathing, fainting when sitting or lying down, confusion, difficulty walking. Thank you for coming to the [facility] ER. We hope you feel better soon! ----- Lleg a la kayode de emergencias por dolor de elsa. En el servicio de urgencias, lo evaluaron con anlisis de avery y tomografa computarizada de la elsa. Moss anlisis de avery fue normal. La tomografa computarizada de moss elsa mostr "silla turca rock"; esto se mickey en moss tomografa craneal anterior. No parece tener ciara necesidad aguda de hospitalizacin inmediata. En la mayora de los casos en personas con sndrome de la silla turca rock, no hay sntomas asociados (asintomticos). El sntoma ms comn potencialmente asociado con el sndrome de la silla turca rock son los virgilio de elsa crnicos. Se le recomend hacer un seguimiento con moss mdico de atencin primaria. Vaya a moss chaav programada. Le dieron ciara derivacin al Dr. Polanco, neurlogo. Llame el lunes y programe ciara chava. Regrese a la kayode de emergencias de inmediato con cualquier inquietud nueva o que empeore, montse dolor de elsa intenso, vmitos persistentes, dolor al respirar, desmayo al sentarse o acostarse, confusin, dificultad para caminar. [place] por venir a la kayode de emergencias de [place]. Esperamos que se sienta mejor pronto! Print Language: CZECH - Post Discharge Activity Work/Back to School Note: Back to Work
[2020-03-15] MEDS ORDERED: ACETAMINOPHEN 1000 MG/100 ML VIAL (NON FORMULARY) IVPB ONE (20:41)
[2020-03-15] MEDS ORDERED: SODIUM CHLORIDE 0.9% 500 ML INFUS.BAG IV ONE (20:41)
[2020-03-15] MEDS ORDERED: METOCLOPRAMIDE HCL INJECTION 10 MG/2 ML VIAL IVPB ONE (20:41)
[2020-03-15] MEDS ORDERED: ACETAMINOPHEN INJECTION 100 ML IVPB ONE (20:56)
[2020-03-15] MEDS ORDERED: METOCLOPRAMIDE HCL INJECTION 10 MG/2 ML VIAL ONE (20:56)
[2020-03-15 21:21] LABS: BASO % 0.7 % (0-2.0); EOS % 1.6 % (0-4.5); HEMATOCRIT 41.9 % (32.4-45.2); HEMOGLOBIN 13.9 GM/dL (10.7-15.3); LYMPH % 35.8 % (8-40); MCH 27.5 pg (25.7-33.7); MCHC 33.1 g/dl (32.0-36.0); MEAN CELL VOLUME 83.1 fl (80-96); MEAN PLT VOLUME 7.6 fl (7.5-11.1); NEUT % 52.9 % (42.8-82.8); PLATELET COUNT 255 K/MM3 (134-434); RBC 5.04 M/mm3 (3.60-5.2); WHITE BLOOD COUNT 7.2 K/mm3 (4.0-10.0)
[2020-03-15 22:04] LABS: ALBUMIN 3.6 g/dl (3.4-5.0); ALK PHOS 94 U/L (45-117); ANION GAP 5 MMOL/L (8-16); BILIRUBIN,TOTAL 0.1 mg/dL (0.2-1); CALCIUM 9.4 mg/dL (8.5-10.1); CHLORIDE 102 mmol/L (98-107); CO2 32 mmol/L (21-32); CREATININE 0.6 mg/dL (0.55-1.3); GLUCOSE,RANDOM 92 mg/dL (74-106); POTASSIUM 4.2 mmol/L (3.5-5.1); SGOT/AST 21 U/L (15-37); SGPT/ALT 33 U/L (13-61); SODIUM 139 mmol/L (136-145); TOT PROT 7.1 g/dl (6.4-8.2)
[2020-03-15 23:15] VITALS: BP 124/75; PULSE 73
--- NOTE | 2020-04-06 06:34 | PDOC ---
Documentation entered by Tiffani Denney SCRIBE, acting as scribe for Sabine Puri MD. Sabine Puri MD: This documentation has been prepared by the scribe, Tiffani Denney SCRIBE, under my direction and personally reviewed by me in its entirety. I confirm that the documentation accurately reflects all work, treatment, procedures, and medical decision making performed by me. Attending Attestation - Resident Resident Name: HarleyRadha - ED Attending Attestation I have performed the following: I have examined & evaluated the patient, The case was reviewed & discussed with the resident, I agree w/resident's findings & plan, Exceptions are as noted - HPI HPI: 03/15/20 22:10 Patient is a 54 year old female with a significant past medical history of hypertension, diabetes, and hyperlipidemia, who presents to the ED with a headache x3 days. Patient describes her headache as an intermittent "pounding sensation" that is mostly on her frontal area with a pain level of 7/7. Patient also reports 1 episode of dizziness and blurry vision that self resolved after about 30 minutes yesterday. Patient disclosed that she has not been complying with her medications x8 months due to the Covid pandemic and that she self medicated with Tylenol prior to ED arrival which mildly alleviated her symptoms. Patient endorses: chest pain/ pressure, SOB, and emotional stress. Patient denies: fever, chills, facial pain, nausea, vomiting, abdominal pain, diarrhea, constipation, or any other related symptoms. Allergies: aspirin - Physicial Exam PE: 03/15/20 23:10 Agree with resident exam. Pt has normal neuro exam heart and lungs normal HEENT normal - Medical Decision Making 03/15/20 23:01 Patient Name: MARITZA LEE THIS IS A PRELIMINARY REPORT DATE OF SERVICE: 2020-03-15 21:58:56 IMAGES: 109 EXAM: HEAD CT WITHOUT CONTRAST HISTORY: 54-year-old female with a headache COMPARISON: None. FINDINGS: The pituitary gland is not seen within the sella suspicious for empty sella syndrome may be associated with symptoms of headache. No acute intracranial hemorrhage mass effect or midline shift. Key-white differentiation is maintained. Ventricles sulci and basilar cisterns appear unremarkable. Calvarium is intact. The sinuses and mastoid air cells are clear. IMPRESSION No acute intracranial hemorrhage mass effect or midline shift. The pituitary gland is not seen within the sella suspicious for empty sella syndrome may be associated with symptoms of headache. If clinically indicated follow-up outpatient MRI Brain Pituitary Gland Protocol may be needed. This CT exam was performed using one or more of the following dose reduction techniques: automated exposure control, adjustment of the mA and/or kV according to patient size, use of iterative reconstruction technique. Discharge - Discharge Information Problems reviewed: Yes Clinical Impression/Diagnosis: Tension headache Condition: Stable Disposition: HOME - Follow up/Referral Referrals: Isacc Polanco MD [Staff Physician] - Joe Hart MD [Primary Care Provider] - - Patient Discharge Instructions Patient Printed Discharge Instructions: DI for Headache Additional Instructions: You came into the ER for headache. In the ED, you were evaluated with blood work and head CT. Your blood work was normal. 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 You do not appear to be an acute need for immediate hospitalization. In most cases in individuals with empty sella syndrome, there are no associated symptoms (asymptomatic). The most common symptom potentially associated with empty sella syndrome is chronic headaches. You were advised to follow up with your primary care doctor. Go to your appoi ntment as scheduled. You were given a referral to Dr. Polanco, neurologist. Call on Tuesday and schedule an appointment. Come back to the ER immediately with any new or worsening concerns, such as sev ere headache, persistent vomiting, pain with breathing, fainting when sitting or lying down, confusion, difficulty walking. Thank you for coming to the [facility] ER. We hope you feel better soon! ----- Lleg a la kayode de emergencias por dolor de elsa. En el servicio de urgencias, lo evaluaron con anlisis de avery y tomografa computarizada de la elsa. Moss anlisis de avery fue normal. La tomografa computarizada de moss elsa mostr "silla tur[place]"; esto se mickey en moss tomografa craneal anterior. No parece tener ciara necesidad aguda de hospitalizacin inmediata. En la mayora de los casos en personas con sndrome de la silla turca rokc, no hay sntomas asociados (asintomticos). El sntoma ms comn potencialmente asociado con el sndrome de la silla turca rock son los virgilio de elsa crnicos. Se le recomend hacer un seguimiento con moss mdico de atencin primaria. Vaya a moss chava programada. Le dieron ciara derivacin al Dr. Polanco, neurlogo. Llame el lunes y programe ciara chava. Regrese a la kayode de emergencias de inmediato con cualquier inquietud nueva o que empeore, montse dolor de elsa intenso, vmitos persistentes, dolor al respirar, desmayo al sentarse o acostarse, confusin, dificultad para caminar. [place] por venir a la kayode de emergencias de [place]. Esperamos que se sienta mejor pronto! Print Language: BELARUSIAN - Post Discharge Activity Work/Back to School Note: Back to Work
== END 2020-03-15 23:14 | disposition home or self-care (01) ==
LOC: JER 18:29
PROC: 3E0333Z Introduction of Anti-inflammatory into Peripheral Vein, Percutaneous Approach (ICD-10-PCS; principal; 2020-03-15)
PROC: 3E033GC Introduction of Other Therapeutic Substance into Peripheral Vein, Percutaneous Approach (ICD-10-PCS; 2020-03-15)
DX: G44.209 Tension-type headache, unspecified, not intractable (principal)
CPT/HCPCS: 36415; 70450-TC; 80053; 84484; 85025; 99285-25; J0131

== ENCOUNTER 2020-08-21 11:25 | Emergency (ER) | payer OTHER ==
[2020-08-21 11:41] VITALS: BP 144/86; PULSE 83; TEMP 97.7; BMI 30.5
[2020-08-21] MEDS ORDERED: MAG HYDROX/AL HYDROX/SIMETH -MYLANTA- ORAL SUSPENSION PO ONE (11:41)
[2020-08-21] MEDS ORDERED: FAMOTIDINE 20 MG/50 ML IVPB 20 MG/50 ML MG IVPB ONE ×2 (11:42→11:58)
[2020-08-21] MEDS ORDERED: MAG HYDROX/AL HYDROX/SIMETH 30 ML UNIT-DOSE CUP ONE (11:58)
[2020-08-21 12:19] LABS: BASO % 1.6 % (0-2.0); EOS % 1.6 % (0-4.5); HEMATOCRIT 41.3 % (32.4-45.2); HEMOGLOBIN 13.6 GM/dl (10.7-15.3); LYMPH % 30.1 % (8-40); MCH 27.5 pg (25.7-33.7); MCHC 33.1 g/dl (32.0-36.0); MEAN CELL VOLUME 83.2 fl (80-96); MEAN PLT VOLUME 7.7 fl (7.5-11.1); MONO % 12.4 % (3.8-10.2); NEUT % 54.3 % (42.8-82.8); PLATELET COUNT 255 K/MM3 (134-434); RBC 4.96 M/mm3 (3.60-5.2); RDW 13.4 % (11.6-15.6); WHITE BLOOD COUNT 6.3 K/mm3 (4.0-10.8)
[2020-08-21 12:25] LABS: ALBUMIN 3.8 g/dl (3.4-5.0); BILIRUBIN,TOTAL 0.3 mg/dl (0.2-1); CALCIUM 9.5 mg/dl (8.5-10); CREATININE 0.6 mg/dl (0.55-1.3); POTASSIUM 4.3 mmol/L (3.5-5.1); TOT PROT 7.1 g/dl (6.4-8.2)
== END 2020-08-21 14:35 | disposition home or self-care (01) ==
LOC: FER 11:25
PROC: 3E033GC Introduction of Other Therapeutic Substance into Peripheral Vein, Percutaneous Approach (ICD-10-PCS; principal; 2020-08-21)
DX: R10.13 Epigastric pain (principal)
CPT/HCPCS: 36415; 71046-TC-FY; 76705-TC; 80053; 81003; 83690; 84484; 85025; 87086; 93005; 99285-25

== ENCOUNTER 2020-09-29 13:43 | Emergency (ER) | payer OTHER ==
[2020-09-29 14:24] VITALS: BP 115/78; PULSE 90; TEMP 98; BMI 32.9
[2020-09-29] MEDS ORDERED: LORATADINE 10 MG TABLET PO ONE (14:45)
[2020-09-29] MEDS ORDERED: PSEUDOEPHEDRINE HCL 30 MG TABLET PO ONE (14:46)
[2020-09-29] MEDS ORDERED: PSEUDOEPHEDRINE HCL 30 MG TABLET ONE (15:04)
[2020-09-29] MEDS ORDERED: LORATADINE 10 MG TABLET ONE (15:05)
[2020-09-29 15:31] LABS: EPITHELIAL CELLS FEW /hpf
== END 2020-09-29 16:45 | disposition home or self-care (01) ==
LOC: FER 13:43
DX: U07.1 COVID-19 (principal); R51.9 Headache, unspecified
CPT/HCPCS: 81003; 81015; 87086; 87804; 99283-25; C9803; U0003

== ENCOUNTER 2020-11-01 18:28 | Emergency (ER) | payer OTHER ==
[2020-11-01 18:43] VITALS: BP 119/81; PULSE 72; TEMP 98.1; BMI 30.5
[2020-11-01] MEDS ORDERED: DEXAMETHASONE LIQUID 0.5 MG/5 ML PO ONE (19:15)
[2020-11-01] MEDS ORDERED: SODIUM CHLORIDE FOR INHALATION 3 ML VIAL.NEB IH ONE (19:16)
[2020-11-01] MEDS ORDERED: ALBUTEROL SO4 2.5/IPRATROPIUM 0.5 INH SOL 3 ML VIAL.NEB. NEB ONE (19:16)
[2020-11-01] MEDS ORDERED: DEXAMETHASONE SOD PHOSPHATE 10 MG/1 ML VIAL ONE (19:22)
[2020-11-01] MEDS ORDERED: ALBUTEROL SO4 HFA INHALER IH ONE ×2 (19:22→19:25)
== END 2020-11-01 20:17 | disposition home or self-care (01) ==
LOC: JER 18:28 → JERFT 18:28
PROC: 3E0F7GC Introduction of Other Therapeutic Substance into Respiratory Tract, Via Natural or Artificial Opening (ICD-10-PCS; principal; 2020-11-01)
DX: J98.01 Acute bronchospasm (principal); J45.21 Mild intermittent asthma with (acute) exacerbation; L23.9 Allergic contact dermatitis, unspecified cause
CPT/HCPCS: 71046-TC-FY; 99284-25

== ENCOUNTER 2023-03-08 04:30 | Day surgery (SDC) | payer OTHER ==
[2023-03-07 10:00] VITALS: BMI 37.8
[~2023-03-08 04:30] MED LIST: BUPIVACAINE HCL/PF 0.75% 10 ML VIAL NR ONE; LIDOCAINE HCL 1% PRESERVATIVE FREE - 30ML VIAL IJ ONE
[2023-03-08] MEDS ORDERED: BUPIVACAINE HCL/PF 0.75% 10 ML VIAL NR ONE (12:26)
[2023-03-08] MEDS ORDERED: LIDOCAINE HCL 1% PRESERVATIVE FREE - 30ML VIAL IJ ONE (12:26)
[2023-03-08 12:58] VITALS: RESP 20
[2023-03-08] MEDS ORDERED: ACETAMINOPHEN 500 MG TABLET (FP) PO PRN (13:10)
[2023-03-08 15:16] VITALS: BP 120/61; PULSE 62; TEMP 97.3
== END 2023-03-08 15:23 | disposition home or self-care (01) ==
LOC: JASU-SURG 04:30
PROVIDERS: ATTEND Pain Medicine Pain Medicine
PROC: 3E0T33Z Introduction of Anti-inflammatory into Peripheral Nerves and Plexi, Percutaneous Approach (ICD-10-PCS; 2023-03-08)
PROC: 3E0T3BZ Introduction of Anesthetic Agent into Peripheral Nerves and Plexi, Percutaneous Approach (ICD-10-PCS; principal; 2023-03-08 13:15)
DX: M47.816 Spondylosis without myelopathy or radiculopathy, lumbar region (principal)
CPT/HCPCS: 76000-TC-FY